=== PATIENT | male | born 1955 | race Caucasian/White ===

== ENCOUNTER 2018-02-02 07:14 | Inpatient (IN) ==
--- NOTE | 2018-02-01 22:14 | Discharge Summary ---
<Eda Wiggins Rufina - Last Filed: 02/01/18 22:12> Date of Encounter: 02/01/18 - Discharge Diagnosis (1) Arthritis of left hip Priority: Primary Status: Acute (2) Status post total hip replacement, left Priority: Primary Status: Acute - Hospital Course Hospital course: Mr. Pro is a 63 year old male - Time Spent with Patient Total time spent providing and/or coordinating discharge services: - Discharge Medications Home Medications: Aspirin Enteric Coated [Aspirin EC] 325 mg PO BID #20 tablet.dr 02/01/18 [Rx] OxyCODONE Immed Rel [Roxicodone 5 MG] 5 mg PO Q6HR PRN 7 Days #28 tablet [Rx] Latanoprost [Xalatan] 1 drop BOTH EYES HS 02/02/18 [History] Allergies/Adverse Reactions: 3 Allergy/AdvReac Type Severity Reaction Status Date / Time acetaminophen [From [place]] AdvReac Itching Verified 02/02/18 08:24 hydrocodone [From [place]] AdvReac Itching Verified 02/02/18 08:24 Primary care physician: Jossie Kenney CNP - Patient Status Disposition: Home, Self-Care Condition: Good - Discharge Instructions Follow Up With: Jossie Kenney CNP [Primary Care Provider] - <Thien Fierro - Last Filed: 02/03/18 06:46> Orders not resulted at time of discharge: Pending orders 02/02/18 00:01 XR hip complete LT [XR] Routine H/H [Hemoglobin and Hematocrit] [HEME] Routine Date of Encounter: 02/03/18 Time of Encounter: 06:46 - Discharge Diagnosis (1) Arthritis of left hip Priority: Primary Status: Chronic (2) Status post total hip replacement, left Priority: Primary Status: Acute - Hospital Course Hospital course: Mr. Pro is a 63 year old male Status post total hip replacement The patient had an uneventful postoperative course. They received antibiotics and physical therapy and were discharged in stable condition. There will follow -up in the office in 2 weeks. - Time Spent with Patient Total time spent providing and/or coordinating discharge services: Primary care physician: Jossie Kenney CNP - Patient Status Functional capacity at discharge: uses cane/walker Overall status at discharge: patient is progressing back to baseline
[2018-02-02] MEDS ORDERED: Ethanol\\Acetic Acid\\Na Ace\\Ben 1,000 ML IRRIG.SOLN IR ONE (07:26)
[2018-02-02] MEDS ORDERED: CeFAZolin Syr 2,000MG/20 ML 2,000 MG/20 ML SYRINGE IVPB ONE (07:44)
--- NOTE | 2018-02-02 07:44 | History & Physical Report ---
Date of Encounter: 02/02/18 Time of Encounter: 07:43 24 Hour HP Update - Instructions Instructions: If the History and Physical is less than 30 days old and was completed prior to A.M. admission and or procedure and has NOT been updated on calendar day of procedure please complete this update prior to performing procedure. - Update Patient reports changes in Medical Condition: No Changes in examination, assessment, or condition: No Changes in Medication: No Preop tests/diagnostics Reviewed: Yes Surgery Remains Indicated: Yes Consent for Planned Operative Procedure(s) Verified: Yes - Pre-Operative Checklist Preoperative Checklist Indicated: No Prophylactic Antibiotic Ordered: Yes Is VTE Prophylaxis Indicated?: Yes
[2018-02-02] MEDS ORDERED: Ringers Solution, Lactated 1,000 ML IVC SCH (07:45)
[2018-02-02] MEDS ORDERED: Albuterol 2.5 MG/3 ML NEBULIZER IH ONE (07:45)
--- NOTE | 2018-02-02 07:57 | Anesthesia Evaluation PreOp ---
Date of Encounter: 02/02/18 Time of Encounter: 07:55 - Past History Planned Operation: Left Total Hip Arthroplasty Cardiac History: Denies any Significant Hx Pulmonary History: Former smoker (quit 6 months ago, smoked for 40+ years) SUBSTANCE ABUSE RN History: Other (herniated discs lower back) Other Medical History: Other (glaucoma) Anesthesia History: No Prior Anesthetic Complications, Past Anesthesia Alcohol Use: heavy (quit 6 months ago, drank up to 18-24 beers daily) Drug use: none Medications and Allergies Aspirin Enteric Coated [Aspirin EC] 325 mg PO BID #20 tablet.dr 02/01/18 [Rx] OxyCODONE Immed Rel [Roxicodone 5 MG] 5 mg PO Q6HR PRN 7 Days #28 tablet [Rx] Latanoprost [Xalatan] 1 drop BOTH EYES HS 02/02/18 [History] 3 Allergy/AdvReac Type Severity Reaction Status Date / Time acetaminophen [From [place]] AdvReac Itching Verified 02/02/18 08:24 hydrocodone [From [place]] AdvReac Itching Verified 02/02/18 08:24 - Meds/Allergy Pre-op Review Medications Reviewed: Yes Allergies Reviewed: Yes Beta Blockers on Current Med List: No Anesthesia Results - Labs Laboratory Tests 01/19/18 01/19/18 01/19/18 10:03 10:03 10:03 WBC 8.0 Hgb 13.1 Hct 40.5 Plt Count 256 PT 10.0 INR 0.9 APTT 31.7 Sodium 142 Potassium 4.0 BUN 17 Creatinine 0.68 L - Imaging EKG: report reviewed (01/19/2018 SINUS RHYTHM) Anesthesia Exam O2 Sat Height 1.85 m Height 1.85 m Weight 91.626 kg Weight 91.626 kg O2 Sat by Pulse Oximetry 99 Vital Signs Temp Pulse Resp BP Pulse Ox 97.8 F 70 18 132/80 99 02/02/18 07:44 02/02/18 07:44 02/02/18 07:44 02/02/18 07:44 02/02/18 07:44 Height: 6'1'' Weight: 202 lbs NPO (# of Hours): 8 Pain Scale: 4 (left hip) Pain Scale Used: Numeric (1 - 10) - HEENT Pupil (Motor): EOMI Mallampati: III Teeth: Poor dentition Oral Opening: Greater than 3 - SUBSTANCE ABUSE RN LOC: Oriented SUBSTANCE ABUSE RN Motor: Normal RUE, Normal LUE, Normal RLE, Normal LLE, Normal Face SUBSTANCE ABUSE RN Sensory: Normal: RUE, LUE, RLE, Face, Deficit: LLE (numbness in toes and lateral thigh) - Cardiac Rhythm: Regular Murmur: None - Pulmonary Breath Sounds: bilateral Clear Respiratory Effort: Symmetrical Anesthesia Assess/Plan ASA Score: 2 Modified Robert Scale for Level of Consciousness: Cooperative, oriented, and tranquil Anesthetic Plan: Regional Monitoring Plan: Standard Monitors Recovery Plan: PACU
[2018-02-02] MEDS ORDERED: *HR* Midazolam HCl 2 MG/2 ML VIAL ONE (08:27)
[2018-02-02] MEDS ORDERED: *HR* Succinylcholine 200 MG/10 ML VIAL IVP ONE (08:27)
[2018-02-02] MEDS ORDERED: *HR* Propofol 200 MG/20 ML VIAL IVP ONE ×2 (08:27→09:23)
[2018-02-02] MEDS ORDERED: Lidocaine -MPF 2% 2 ML VIAL ONE (08:27)
[2018-02-02] MEDS ORDERED: Ondansetron 4 MG/2 ML VIAL ONE (08:27)
[2018-02-02] MEDS ORDERED: *HR* FentaNYL (PF) 100 MCG/2 ML VIAL ONE (08:27)
[2018-02-02] MEDS ORDERED: Dexamethasone 4 MG/ML VIAL ONE (08:27)
[2018-02-02] MEDS ORDERED: Morphine Sulfate/PF 5mg/10mL Vial ONE (08:46)
[2018-02-02] MEDS ORDERED: Propofol 500 MG/50 ML INFUS..BTL ONE ×2 (09:22→10:13)
--- NOTE | 2018-02-02 09:56 | Anesthesia Procedures ---
Date of Encounter: 02/02/18 Time of Encounter: 09:17 Procedures: Anesthesia - Epidural/Spinal Patient ID/Chart reviewed: Yes Patient examined: Yes Site Prep: Aseptic Technique, Sterile prep and drape, 0.5% Chlorhexidine/Alcohol Local Anesthetic: Lidocaine 1% Amount of Local Anesthetic used: 2 Blood: No CSF: Yes Paresthesia: No Spinal Needle Gauge: 25 (sprotte) Procedure: L3-4 one pass. clear CSF inj post swirl, 200mcg morphine, 10mg bup isobaric plain, all PF. candi well.
[2018-02-02] MEDS ORDERED: *HR* Phenylephrine 10 MG/ML VIAL ONE (10:16)
--- NOTE | 2018-02-02 10:29 | Orthopedic Operative Note ---
Date of procedure: 02/02/18 Pre-op diagnosis: Left hip arthritis Post-op diagnosis: same Procedure: Procedure: Left Total Hip Replacment robotic-assisted Estimated blood loss: 200 cc Hardware: Metal and polyethylene replacement. Jessika DM Cup: 64 cup Femoral size 12 stem Head: -4 head with Eliana Procedural Notes: Grade 4 arthritic changes femoral head acetabular socket, procedure performed with robotic assistance. 2 mm short operative side as measured by CT scan Operative procedure: The patient was brought to the operating room and placed on the operating room table. After general anesthesia was administered the patient was placed in the lateral decubitus position with the operative leg up. All pressure points were padded appropriately and the head was stabilized in the neutral position. The operative extremity was prepped and draped in the sterile surgical fashion patient received IV antibiotic prior to skin incision. 3 Steinmann pins were placed in the iliac crest 3 cm proximal to the anterior superior iliac spine this was for the robotic-assisted sensor. This was done through a small 2 cm incision. A standard posterior approach is made to the operative hip, the incision was made through the skin and subcutaneous tissue hemostasis was obtained with Bovie cautery. Using careful sharp dissection the fascia was identified and incised exposing the external rotators. The femoral checkpoint was placed leg length was measured at this time utilizing robotic assistance. The external rotators were released off the greater trochanter and tagged with # 2 FiberWire suture. The capsule was T'd open and the hip was brought into internal rotation. Patient noted to have grade 4 arthritic changes femoral head. The femoral neck cut was made at the appropriate level roughly Xmm proximal to the lesser trochanter aced on preoperative templating. An anterior capsulotomy was performed for the anterior retractor. Soft tissues removed from the acetabulum. Patient noted to have grade 4 arthritic changes acetabulum. The acetabulum checkpoint was placed confirmed. The acetabulum was then mapped with robotic assistance. Based on the preoperative plan the acetabulum was reamed in one step with a 63 reamer. The 64 acetabulum was impacted with robotic assistance and 40 degrees of abduction and 20 degrees of anteversion. The hip was brought back in to internal rotation and prepared with the jukebox routeman followed by the canal finder followed by the reaming process to a size 11 /12 broaching process in 20 degrees anteversion. It was broached up to the appropriate size 12. Trial reduction revealed leg lengths close to normal. The femoral implant was impacted in place in 20 degrees of anteversion. Trial reduction found the hip to be stable with -4 head and Eliana. The trials were removed and the real implants were impacted in place. The hip was reduced, patient had robotic confirmed leg length of 5 mm mm longer than the contralateral side. The hip had excellent stability with forward flexion to 90 degrees adduction of 30 degrees and internal rotation of 60 degrees. The hip had no shuck. The hips after 2 minutes with a antibacterial solution. The hip was closed by the PA It was irrigated out with 2 L of pulse irrigation. The checkpoints were removed, Steinmann pins were removed. The hip was closed by the PA. The deep tissue was irrigated and closed deep with #1 PDS suture superficially with 0 PDS suture and skin was closed with Dermabond and zip tie. The patient was placed in a sterile dressing and abduction pillow. The patient was extubated and transferred to the recovery room in stable condition. Anesthesia: spinal Surgeon: Thien Fierro Was there an phlebotomist medical lab assistant present: Yes Specialties Operator: Eda Wiggins Estimated blood loss (cc): 200 Condition: stable Disposition: PACU
[2018-02-02 11:28] LABS: Hematocrit 33.2 % (37.5-50.1); Hemoglobin 10.9 g/dL (12.9-16.9)
--- NOTE | 2018-02-02 11:29 | Anesthesia Evaluation Post Op ---
Date of Encounter: 02/02/18 Time of Encounter: 11:27 - Vital Signs Vital Signs: vss - Lungs Lungs: Clear Ascult./Percussion - Airway Airway: Non-obstructed - Cardiovascular Baseline Rhythm - Mental Status Mental Status: Alert & Oriented, Answers Appropriately - Pain Pain Scale used: Víctor (Faces) - Nausea Vomiting Nausea Vomiting: Not Present - Hydration Hydration: Ice chips - Discharge PostOp Status: Transfer Patient to floor
[2018-02-02] MEDS ORDERED: *HR* OxyCODONE Immed Rel 5 MG TABLET PO PRN (11:36)
[2018-02-02] MEDS ORDERED: Naloxone 0.4 MG/ML INJ IVP PRN (11:36)
[2018-02-02] MEDS ORDERED: Temazepam 15 MG CAPSULE PO PRN (11:36)
[2018-02-02] MEDS ORDERED: *HR* OxyCODONE/APAP 5/325 TABLET PO PRN (11:36)
[2018-02-02] MEDS ORDERED: Ondansetron 4 MG/2 ML VIAL IVP PRN (11:36)
[2018-02-02] MEDS ORDERED: Sennosides 8.6 MG TABLET PO PRN (11:36)
[2018-02-02] MEDS ORDERED: MOM Conc 10 ML UD.LIQ PO PRN (11:36)
[2018-02-02] MEDS ORDERED: traMADol 50 MG TABLET PO PRN (11:36)
[2018-02-02] MEDS ORDERED: *HR* Morphine 2 MG/ML SYRINGE IVP PRN (11:36)
[2018-02-02] MEDS: Multivit/Ca/Min/Fe/FA 1 TAB TABLET PO SCH (12:04)
[2018-02-02] MEDS: Ascorbic Acid 500 MG TABLET PO SCH ×2 (12:04→15:39)
[2018-02-02] MEDS: Ringers Solution, Lactated 1,000 ML IVC SCH (12:04)
--- NOTE | 2018-02-02 14:05 | Physician Discharge Referral ---
Home Health/Hosp Referral Info Transfer to: Home Health Attending Provider: Provider in Charge Post Discharge: PCP - Diagnosis (1) Arthritis of left hip Priority: Primary Status: Chronic (2) Status post total hip replacement, left Priority: Primary Status: Acute - Respiratory Orders None Smoking Cessation: Smoking cessation has been advised. For more information, call the [place] Tobacco Quit Line at 1-304-QYZE-NOW. - Diet/Nutrition Diet/Nutrition Orders: Regular - Activity Activity Orders: Up ad katie, Ambulate, Chair, Walker - Services Needed Following services are medically necessary services: Nursing, Home Health Aide, Physical Therapy, Occupational Therapy Home Care Orders: Rehab orders for total hip: Total Hip replacement Precautions Apply cold therapy 3-6x/day for 20 minutes at a time. Encourage ambulation throughout the day and incentive spirometer 10x/hour. Elevate affected extremity as tolerated. Brace: Wear hip abduction pillow when laying/sleeping Treatments: Opsite dressing, leave intact until first post-operative visit. If dressing becomes >50% saturated, contact office, remove dressing and place appropriate dressing in its place. Leave Zipline intact. Opsite dressing is water resistant, not water-proof. OK to shower, but do not get dressing wet. [place] in place, plan to remove at post-operative day #14-16. - Transfer Medications Home Medications: Aspirin Enteric Coated [Aspirin EC] 325 mg PO BID #20 tablet. 02/01/18 [Rx] OxyCODONE Immed Rel [Roxicodone 5 MG] 5 mg PO Q6HR PRN 7 Days #28 tablet [Rx] Latanoprost [Xalatan] 1 drop BOTH EYES HS 02/02/18 [History] Allergies/Adverse Reactions: 3 Allergy/AdvReac Type Severity Reaction Status Date / Time acetaminophen [From [place]] AdvReac Itching Verified 02/02/18 08:24 hydrocodone [From [place]] AdvReac Itching Verified 02/02/18 08:24 Certification: Further, I certify that my clinical findings support that this patient is homebound (i.e. absences from home require considerable and taxing effort and are for medical reasons or quaker services or infrequently or short duration when for other reasons) because: Homebound Reason: Post-surgery restriction and or conditions limit ability to leave home Attestation: My signature below is to certify that this patient is under my care and that I, or nurse practitioner, or a physician's bankruptcy assistant working with me, has a face-to -face encounter with this patient.
[2018-02-02] MEDS: ceFAZolin 2,000 MG in 0.9 % Sodium Chloride 100 ML IVPB SCH (15:41)
[2018-02-02] MEDS: *HR* Enoxaparin 30 MG/0.3 ML SYRINGE SQ SCH (16:37)
[2018-02-02] MEDS ORDERED: *HR* Enoxaparin 30 MG/0.3 ML SYRINGE SQ SCH (18:00)
[2018-02-03] MEDS: ceFAZolin 2,000 MG in 0.9 % Sodium Chloride 100 ML IVPB SCH (00:43)
[2018-02-03] MEDS: Ringers Solution, Lactated 1,000 ML IVC SCH (00:45)
[2018-02-03 01:24] LABS: Hematocrit 31.7 % (37.5-50.1); Hemoglobin 10.3 g/dL (12.9-16.9)
[2018-02-03 01:48] LABS: BUN/Creatinine Ratio 23 (6-26); Blood Urea Nitrogen 18 mg/dL (8-23); Calcium 8.5 mg/dL (8.6-10.3); Carbon Dioxide 27 mEq/L (23-29); Chloride 105 mEq/L (98-107); Glucose 168 mg/dL (70-105); Osmolality,Calculated 292 (280-300); Potassium 3.6 mEq/L (3.5-5.1); Sodium 138 mEq/L (136-145); eGFR For African Americans > 60 (> 60); eGFR For Non-African Americans > 60 (> 60)
[2018-02-03] MEDS: *HR* Enoxaparin 30 MG/0.3 ML SYRINGE SQ SCH (04:42)
[2018-02-03 06:30] VITALS: BP 109/66
--- NOTE | 2018-02-03 06:47 | Orthopedics Progress Note ---
Date of Encounter: 02/03/18 Time of Encounter: 06:47 - Assessment and Plan (1) Arthritis of left hip Current Visit: No Status: Chronic (2) Status post total hip replacement, left Current Visit: No Status: Acute Subjective Interval history: Patient was seen this morning doing well without complaints. Afebrile vital signs stable. Operative extremity: Neurovascularly intact Dressing clean dry and intact [place] nontender Assessment and plan: Continue with postoperative care Hematocrit 31 patient without complaints doing well discharged today Objective Vital signs: Vital Signs Temp Pulse Resp BP Pulse Ox 02/03/18 06:28 99.5 F 86 18 109/66 98 02/03/18 04:09 98.7 F 93 20 100/65 97 02/02/18 23:19 98.7 F 100 18 102/59 96 02/02/18 20:46 98.7 F 82 18 118/78 98 02/02/18 18:56 104 02/02/18 18:52 130 02/02/18 18:41 98.4 F 116 18 114/79 98 02/02/18 14:31 97.8 F 90 16 128/72 96 02/02/18 13:44 97.3 F L 71 16 135/74 99 02/02/18 12:40 97.3 F L 73 16 122/66 99 02/02/18 12:11 97.4 F L 57 16 101/65 100 02/02/18 11:41 97.6 F 57 16 112/71 100 02/02/18 11:31 97.0 F L 64 16 121/76 100 02/02/18 11:21 97.0 F L 62 16 121/75 100 02/02/18 11:11 68 16 115/72 99 02/02/18 11:01 66 14 109/73 99 02/02/18 10:51 97.6 F 74 16 114/72 98 02/02/18 09:15 77 16 135/82 99 02/02/18 08:14 18 132/80 99 02/02/18 07:44 97.8 F 70 18 132/80 99 Intake and Output 02/02/18 02/02/18 02/03/18 15:59 23:59 07:59 Intake Total 260 / 260 1550 / 1550 1000 / 1000 Output Total 200 / 200 525 / 525 Balance 60 / 60 1025 / 1025 1000 / 1000 Intake: IV Fluids 20 / 20 100 / 100 1000 / 1000 Lactated Ringers 1,000 ML @ 75 1000 / 1000 mls/hr IVC .[id number] [facility] Rx#: [id number] Ancef Syringe 2,000 MG/20 ML 2, 20 / 20 000 mg In 20 ml @ 200 mls/hr IVPB PREOP ONE Rx#:[id number] Ancef 2,000 MG In 0.9 % Sodium 100 / 100 Chloride 100 ML @ 200 mls/hr IVPB Q8HR [facility] Rx#:[id number] Oral 240 / 240 1450 / 1450 0 / 0 Output: Urine 525 / 525 Estimated Blood Loss 200 / 200 Other: Meal Lunch Percent of Meal Consumed 100% # Voids 1 1 Weight 91.626 kg - Labs CBC & BMP: 02/03/18 01:01 02/03/18 01:01 Labs: Abnormal lab results Hgb 10.3 g/dL (12.9-16.9) L 02/03/18 01:01 Hct 31.7 % (37.5-50.1) L 02/03/18 01:01 Glucose 168 mg/dL (70-105) H 02/03/18 01:01 Calcium 8.5 mg/dL (8.6-10.3) L 02/03/18 01:01 - VTE Documentation of Mechanical Device: Venous foot pump, device Consult Discharge Plan - Plan Referrals: Jossie Kenney, [employer]INEER[employer] PROFESSOR [Primary Care Provider] -
[2018-02-03] MEDS: Ascorbic Acid 500 MG TABLET PO SCH (08:17)
[2018-02-03] MEDS: Multivit/Ca/Min/Fe/FA 1 TAB TABLET PO SCH (08:17)
--- NOTE | 2018-02-06 16:56 | Electrocardiograph Report ---
[address] [address] Test Date: 2018-02-02 Pat Name: [facility] Department: 114 Room: [facility] Gender: Folder And Notcher: [id number] : [id number] Requested By: Thien Fierro Order Number: [id number] Reading MD: Karina Parkinson Measurements Intervals Cooper Rate: 93 P: 42 UT: 128 QRS: 20 QRSD: 88 T: 26 QT: 339 QTc: 390 Interpretive Statements SINUS RHYTHM Electronically Signed On 02-06-2018 16:54:56 EDT by Karina Parkinson
== END 2018-02-03 10:14 | disposition home or self-care (01) | DRG 470 ==
LOC: SAMDAY 07:14 → 3NENU 11:35
PROVIDERS: ADMIT Orthopaedic Surgery; ATTEND Orthopaedic Surgery